=== PATIENT | female | born 1960 | race Caucasian/White ===

== ENCOUNTER → 2017-03-14 | Outpatient (CLI) | payer BC ==
[~2017-03-14] MED LIST: ALPRAZOLAM0.5 M3; AMITRIPTYLINE 550 MG PO; ARNUITY EL200 MCG/Ac IH; ASPIRIN81 MG PO; DICLOFENAC 50MG50 MG PO; DIPHENHYDRAMINE50 MG PO; ELAVIL GENERIC25 MG PO; SERTRALINE 100100 MG; SINGULAIR 10 MG10 MG PO; SYMBICORT1 AE1 IH; TIZANIDINE HCL 44 MG NG; TOPAMAX100 MG PO; ULTRAM50 MG PO; VENTOLIN H0.09 MG/AC IH; XANAX 0.5MG TA0.5 MG PO; ZOLOFT100 MG PO
--- NOTE | 2017-03-14 14:17 | RADIOLOGY REPORT PS360 ---
History and Indications: Obesity, hypertension, tobacco use, shortness of breath and fatigue. Procedure: Patient received a 0.4 mg of Lexiscan, resting heart rate was noted in 106 bpm, resting blood pressure of 184/91, with Lexiscan maximum heart rate achieved was 114 bpm which is less than 85% of the maximum predicted heart rate and a blood pressure was 190/77. With Lexiscan patient complained of mild shortness of breath, and lightheadedness. Electrocardiogram: Resting electrocardiogram showed sinus tachycardia abnormal P wave, with Lexiscan there is less than 1.[address] depression noted from the baseline EKG. The EKG portion of the Lexiscan Myoview is nondiagnostic. Cardiac stress and resting SPECT images: Cardiac stress and resting SPECT images were obtained using technetium 99 Myoview 10.4 mCi at rest and 31.8 mCi at stress, gated SPECT further analysis of segmental wall motion and calculation of the ejection fraction also done. Cardiac stress and rest images show a fixed defect involving the inferior and posterobasal wall with normal contractility on the gated SPECT is likely secondary to soft tissue attenuation, no reversible ischemia seen. Computer derived ejection fraction is 61% with no obvious regional wall motion abnormality, right ventricle is mildly enlarged with normal contractility. Conclusion: 1. The EKG portion of the Lexiscan Myoview is nondiagnostic. 2. No obvious scintigraphic evidence of reversible ischemia seen, computer derived ejection fraction is 61% with no obvious regional wall motion abnormality, right ventricle is mildly enlarged with normal contractility.
== END ==
LOC: RAD 06:55
DX: R06.00 Dyspnea, unspecified (principal); R00.0 Tachycardia, unspecified; I10 Essential (primary) hypertension
CPT/HCPCS: A9502; J2785

== ENCOUNTER → 2017-05-05 | Outpatient (CLI) | payer BC ==
--- NOTE | 2017-05-05 14:14 | RADIOLOGY REPORT PS360 ---
CERVICAL SPINE 4 OR 5 VIEWS COMPARISON: None HISTORY: Generalized neck pain, migraine headaches TECHNIQUE: AP lateral and oblique views and swimmer's view and odontoid view FINDINGS: Seen with through C6 are visualized on lateral projection and appear intact with normal curvature and alignment. C7 is poorly seen even on the swimmer's view but appears grossly normal on oblique views and AP view. Oblique films show no significant neural foraminal narrowing on either side other than minimal narrowing at C5-6 on the left side. IMPRESSION: No significant abnormality noted, only minor neural foraminal narrowing left side C5-C6 secondary to spurring of the uncinate joints.
== END ==
LOC: RAD 10:41
DX: M54.2 Cervicalgia (principal); G43.819 Other migraine, intractable, without status migrainosus

== ENCOUNTER 2017-05-25 10:35 | Emergency (ER) | payer BC ==
[~2017-05-25] VITALS: Ht 162.6 cm; Wt 111.1 kg
--- NOTE | 2017-05-25 10:55 | Emergency Room Report ---
History of Present Illness Time Seen by 1050 Presenting Problem in Triage Pt arrived:Walked Presenting Problem:PT NOTICED A KNOT ON HER RIGHT ELBOW. PT C/O PAIN WHEN SHE USES HER ARM AND TENDER TO TOUCH. CONCERNED WITH BLOOD CLOT. HX OF BLOOD CLOTS IN HER LEGS Onset of symptoms date/time:/ or onset unknown for:MEDICAL HX UNKNOWN Treatment Prior to Arrival: [facility]ER Provided by: Sepsis Risk Assessment: Temp: 98.7 B/P: 137/92 MAP: 107 Pulse: 112 Resp: 16 Recent fever? N Clinical Suspician of Infection? N Mental Status: 1 - Regular (Normal Baseline) Sepsis Risk:Low Sepsis Risk Have you (or family members/close friends) recently traveled outside the [place]? N If Yes, where/when: Have you had exposure to infectious disease within the past month? N TB? Other? Specify: Pt with hx of TIA August 01, 2016; takes Plavix. She reports hx of DVT six years ago. Over the past three days, has noted a little warmth to the right elbow area and is concerned about possible DVT. She has no SOB. No calf pain. No fever. Is not diabetic. No acute neurological sx. ALLERGIES Coded Allergies: Penicillins (Intermediate, WEAKNESS, DIAPHORESIS, INCREASED HR 01/07/16) acetaminophen (From Vicodin) (MAKES SKIN CRAWL 01/07/16) hydrocodone (From Vicodin) (MAKES SKIN CRAWL 01/07/16) Home Medications Reported Medications Fluticasone Furoate (Arnuity Ellipta) 200 MCG IH DAILY ALBUTEROL (Ventolin Hfa) 2 PUFFS IH TID SERTRALINE HYDROCHLORIDE (Zoloft 100MG) 100 MG PO DAILY Aspirin 81 MG PO DAILY Montelukast Sodium (Singulair 10MG) 10 MG PO QHS TIZANIDINE HCL (Tizanidine Hcl 4 Mg Tablet) 4 MG NG TID History Medical History General CAD? No Angina: No MD: No Hypertension? No Hyperlipidemia? No CHF? No DVT? Yes PE? No COPD? Yes Asthma? Yes Anemia? No GERD? No Gastric ulcers? No GI Bleed? No Hernia? No Thyroid Problems? No Hypothyroidism? No CVA? No Seizures? No Diabetes? No Renal Insuffiency? No End Stage Renal Disease? No UTI? Yes Stones? No BPH? No GB Disease: Yes Nephritic Syndrome? No Asplenia? No Hepatitis? No Sickle Cell Disease? No Arthritis? No Migraines? Yes Cataracts? No Glaucoma? No MRSA? No HIV? No TB? No Anxiety? No Depression? No Cancer? No More? No Immunization Hx DT/Tetanus 1-4 YRS Flu 2012-13FSN Pneumonia NEVER Surgical Hx Previous Surgery?Y Tonsils SCAR TISSUE FOR ABD D & C X 2 TUBAL 1992 LASER SURGERY VEINS GALL BLADDER RESPIRATORY CLINICIAN Hx LMP N/A Family History Family Hx Diabetes Yes CAD No Hypertension No Hyperlipidemia No Cancer Yes TB No Social History Smoking Hx Smoker: Current Every Day Smoker Tobacco: Yes Type Cigarettes Packs/day < 1 Pack Alcohol Alcohol: No Review of Systems All Other Systems Reviewed and Negative Cardiovascular denies no symptoms reported Skin see HPI Physical Exam Vital Signs Vital Signs Date Time Temp Pulse Resp B/P Pulse O2 O2 Flow FiO2 Ox Delivery Rate 05/25 1043 98.7 112 16 137/92 98 General Appearance normal appearance, WD/WN, no apparent distress Eye Exam - bilateral eye normal exam, bilateral eye PERRL, bilateral eye EOMI Neck normal inspection, non-tender, supple, full range of motion Respiratory Status Yes: trachea midline, chest symmetrical, non tender chest. No: respiratory distress, tender on palpation, use of accessory muscles, pain on inspiration, pain on expiration, productive cough, non productive cough. Lung Sounds bilateral: normal breath sounds, lungs clear. Cardiovascular normal exam, regular rate/rhythm, no peripheral edema, no gallop, no JVD, no murmur, no rub, normal peripheral pulses Peripheral Pulses Peripheral Pulses 3+ radial (R), 3+ radial (L) Extremities normal range of motion, normal capillary refill, No edema; right elbow very minor redness laterally, no streaks or pus, no FB, no ropiness; no involvement of antecubital area. No hand or distal f/a involvement; FROM throughout. No calf pain; neg Zak's B. Strength 5 Upper Ext (L), 5 Upper Ext (R), 5 Lower Ext (L), 5 Lower Ext (R) Neurologic alert, normal exam, no motor/sensory deficits, oriented x 3 Glascow Coma Scale Glascow Coma Scale Response Value EYE response: 4 Spontaneously 4 MOTOR response: 6 OBEYS 6 VERBAL response: 5 Oriented & Converses 5 Total 15 Skin intact (see above) Medical Decision Making LABS/Meds/Orders Pt receiving controlled substance in ED? No Results/Orders Laboratory Tests 05/25/17 1110: Sodium 139, Potassium 3.9, Chloride 102, Carbon Dioxide 27, BUN 19 H, Creatinine 0.8, Estimated Creat Clear 141, Estimated GFR (MDRD) 75, Glucose 145 H, Calcium 9.3, Total Bilirubin 0.3, AST 17, ALT 32, Alkaline Phosphatase 137 H , Total Protein 7.8, Albumin 3.6, Globulin 4.2 H, Albumin/Globulin Ratio 0.9 L , PT 10.6, INR 0.98, APTT 22.4 L, WBC 13.4 H, RBC 4.22, Hgb 12.9, Hct 38.0, MCV 89.9, RDW 15.6, Plt Count 242, MPV 7.6, Gran % 73.8, Gran # 9.9 H, Lymphocytes % 20.2, Monocytes % 3.3, Eosinophils % 2.4, Basophils % 0.3, Lymphocytes # 2.7, Monocytes # 0.4, Eosinophils # 0.3, Basophils # 0.0, PUBS MCHC 34.1, MCH 30.7 Orders Procedure Date/time Status PARTIAL THROMBOPLASTIN TIME 05/25 1051 Complete PROTHROMBIN TIME 05/25 1051 Complete CBC WITH AUTO DIFF 05/25 1051 Complete CHEM 12 PROFILE 05/25 1051 Complete VENOUS UPPER EXT RT 05/25 1049 Active XRAY/CT/US XRAY/CT/US Ultrasound upper extremity US Interpretation by reviewed by me (d/w tech) US results normal (neg DVT) Departure Departure Time of Disposition 1145 Disposition DC Home or Self Care(routine) Clinical Impression Primary Impression: Cellulitis of right elbow Ruled Out Impressions: DVT (deep venous thrombosis) Condition STABLE Referrals Jocelyn Eddy APRN (PCP/Family) Patient Instructions Cellulitis Additional Instructions Rx Zithromax and Bactrim; see Jocelyn for follow up recheck in one to two days, Tylenol as needed. Discharge Counseling Counseled pt/family regarding diagnosis, test results, medications/RX, home care, follow up needs Prescriptions Current Visit Scripts Azithromycin (Azithromycin 250MG Tab) 250 MG PO DAILY #6 TAB Zpack over five days as directed SULFAMETHOXAZOLE W/TRIMETHOPRI (Bactrim Ds Tab) 1 TABLET PO BID #20 TAB ED Critical Care Critical Care No at 1150
--- OUTSIDE RECORDS SUMMARY | 2017-05-25 11:22 | External Medical Summary Rpt | CCD ---
Author Author , JASSON Organization JASSON Address Unknown Phone [email or web address] Support Name Relationship Address Phone NOVEMBER, Next Of Kin [address], [phone] [place] [address] Purpose Continuity of Care Document - 02-20-2013 through 2016 Allergies, Adverse Reactions, Alerts Type Drug Allergy Propensity to adverse reactions to drug Adverse Reaction to Substance Substance Reaction Severity PCN (penicillin) WEAKNESS Unknown Acetaminophen SKIN CRAWLS Unknown Hydrocodone SKIN CRAWLS Unknown Medications Na ND Rx Da Fi Fi Am Da Di Ph RX Ph St me C No te ll ll ou ys ag ar # ys at rm s nt no ma ic us Or Da si cy ia de te s n re d SO 00 07 0 No DI 40 -2 UM 97 3- Lo 98 20 ng CH 30 13 er LO 3 RI Ac DE ti ve 0. 9% SO MAIA TI ON KE 00 07 0 No TO 40 -2 RO 93 3- Lo LA 79 20 ng C 50 13 er 30 1 Ac MG ti /M ve L AL Vital Signs 02-20-2013 19:03 Name Value Interpretat Reference Comment ion Range Body 97.9 [degF] Temperature BP 77 mm[Hg] Diastolic BP Systolic 130 mm[Hg] Heart 96 /min Rate/Pulse O2% 97 % Respiratory 20 /min Rate Results Labs Lab Lab Date Result Refere Interp Status Commen Order Detail nces retati t Range on COMPREHENSIVE METABOLIC PANEL (02-20-2013 17:35) Glucose 129 74-106 complet 013 mg/dL ed Bld-mCn 17:35 c BUN 12 7-18 complet Bld-mCn 013 mg/dL ed c 17:35 Creat 0.7 0.6-1.0 complet SerPl-m 013 mg/dL ed Cnc 17:35 ESTIMAT 158 50-200 complet ED 013 ML/MIN ed CREATIN 17:35 INE CLEARAN CE GFR 07-23-2 89 59- complet (ESTIMA 013 ML/MIN ed ANTOINETTE) 17:35 Sodium 02-20-2 140 136-145 complet SerPl-s 013 mmoL/L ed Cnc 17:35 Potassi 02-20-2 3.3 3.5-5.1 complet um 013 mmoL/L ed SerPl-s 17:35 Cnc Chlorid 105 98-107 complet e 013 mmoL/L ed SerPl-s 17:35 Cnc CO2 02-20-2 27 21.0-32 complet SerPl-s 013 mmoL/L .0 ed Cnc 17:35 Calcium 02-20-2 8.8 8.5-10. complet 013 mg/dL 1 ed SerPl-m 17:35 Cnc Prot 02-20-2 7.0 6.4-8.2 complet SerPl-m 013 gm/dL ed Cnc 17:35 Albumin 02-20-2 3.3 3.4-5.0 complet 013 gm/dL ed SerPl-m 17:35 Cnc Globuli 02-20-2 3.7 1.3-3.2 complet n 013 gm/dL ed Ser-mCn 17:35 c Albumin 02-20-2 0.9 UNK 1.1-1.8 complet /Glob 013 ed SerPl-m 17:35 Rto Bilirub 02-20-2 0.7 0.2-1.0 complet 013 mg/dL ed SerPl-m 17:35 Cnc AST 02-20-2 21 U/L 15-37 complet SerPl-c 013 ed Cnc 17:35 ALT 02-20-2 46 U/L 30-65 complet SerPl-c 013 ed Cnc 17:35 ALP 02-20-2 159 U/L 50-136 complet SerPl-c 013 ed Cnc 17:35 CBC with AUTO DIFF (02-20-2013 17:35) WBC # 23-2 9.3 4.8-10. complet Bld 013 K/MM3 8 ed Auto 17:35 RBC # 23-2 3.93 4.2-5.4 complet Bld 013 M/mm3 ed Auto 17:35 Hgb 02-20-2 13.5 12.2-16 complet Bld-mCn 013 g/dL .2 ed c 17:35 Hct Fr 02-20-2 39.7 % 37.0-47 complet Bld 013 .0 ed 17:35 MCV RBC 23-2 101.0 82.2-97 complet 013 fl .8 ed 17:35 MCH RBC 23-2 34.3 pg 27-31.2 complet Qn 013 ed Auto 17:35 MEAN 07-23-2 34.0 31.8-35 complet CORPUSC 013 g/dl .4 ed ULAR 17:35 HGB CONC RDW RBC 23-2 15.6 % 11.5-17 complet Auto 013 .5 ed 17:35 Platele -23-2 347 142-424 complet t Bld 013 K/mm3 ed Ql 17:35 Manual MEAN 02-20-2 7.4 fl 7.4-10. complet PLATELE 013 4 ed T 17:35 VOLUME Granulo -23-2 71.5 % 37.0-80 complet cytes 013 .0 ed Fr Bld 17:35 Auto LYMPH % 07-23-2 21.7 % 10-50.0 complet 013 ed 17:35 Monocyt 07-23-2 4.2 % 1.7-9.3 complet es Fr 013 ed Bld 17:35 Auto Eosinop 07-23-2 2.1 % 0.1-12. complet hil Fr 013 0 ed Bld 17:35 Auto Basophi 07-23-2 0.5 % 0.1-2.0 complet ls Fr 013 ed Bld 17:35 Auto Granulo 07-23-2 6.7 1.8-7.8 complet cytes # 013 K/mm3 ed Bld 17:35 Auto Lymphoc 07-23-2 2.0 0.7-4.5 complet ytes Fr 013 K/mm3 ed Bld 17:35 Auto Monocyt 07-23-2 0.4 0.1-1.0 complet es # 013 K/mm3 ed Bld 17:35 Auto Eosinop 07-23-2 0.2 0.0-0.4 complet hil # 013 K/mm3 ed Bld 17:35 Auto Basophi 07-23-2 0.1 0-0.2 complet ls # 013 K/MM3 ed Bld 17:35 Auto URINALYSIS/COMPLETE (02-20-2013 17:35) URINE -23-2 YELLOW YELLOW complet COLOR 013 ed 17:35 URINE 02-20-2 SL CLEAR complet APPEARA 013 CLOUDY ed NCE 17:35 URINE 02-20-2 NEGATIV NEG complet GLUCOSE 013 E ed - 17:35 DIPSTIC K URINE 02-20-2 1+ NEG complet BILIRUB 013 ed IN - 17:35 DIPSTIC K URINE 23-2 NEGATIV NEG complet KETONE 013 E mg/dL ed 17:35 URINE 02-20-2 1.025 1.005-1 complet SPECIFI 013 UNK .030 ed C 17:35 GRAVITY URINE 02-20-2 NEGATIV NEG complet BLOOD 013 E ed 17:35 URINE 02-20-2 6.0 UNK 5.0-8.5 complet PH 013 ed 17:35 URINE 02-20-2 NEGATIV NEG complet PROTEIN 013 E mg/dL ed - 17:35 DIPSTIC K URINE 23-2 0.2 NEG complet UROBILI 013 E.U./dL ed NOGEN - 17:35 DIPSTIC K URINE 02-20-2 NEGATIV NEG complet NITRATE 013 E ed - 17:35 DIPSTIC K URINE 23-2 NEGATIV NEG complet LEUK 013 E ed ESTERAS 17:35 E Encounters Encounter Start End Date Code Location Performer Type Date Emergency MICHAEL WAITE MD (ER) 3 17:43 3 19:04 [facility]
--- OUTSIDE RECORDS SUMMARY | 2017-05-25 11:22 | External Medical Summary Rpt | CCD ---
Author Author [employer] Organization [employer] Address Unknown Phone Unavailable Purpose Continuity of Care Document - through 2016
--- OUTSIDE RECORDS SUMMARY | 2017-05-25 11:22 | External Medical Summary Rpt | CCD ---
Author Author , JASSON Organization JASSON Address Unknown Phone [email or web address] Immunization Name Date Rout CVX Reac Dose Comm Prov Is Faci e tion ent ider Refu lity Give sed n Infl 01-0 Intr 150 0.5 Hist NH No NH uenz 2-20 amus mL oric a 17 cula al Quad r Info Inj rmat ion - Sour ce Unsp ecif ied PPV2 01-0 Intr 33 0.5 Hist NH No NH 3 2-20 amus mL oric 17 cula al r Info rmat ion - Sour ce Unsp ecif ied
--- OUTSIDE RECORDS SUMMARY | 2017-05-25 11:22 | External Medical Summary Rpt | CCD ---
Author Author , JASSON Organization JASSON Address Unknown Phone [email or web address] Immunization Name Date Rout CVX Reac Dose Comm Prov Is Faci e tion ent ider Refu lity Give sed n Infl 01-0 Intr 150 0.5 Hist MT No MT uenz 2-20 amus mL oric a 17 cula al Quad r Info Inj rmat ion - Sour ce Unsp ecif ied PPV2 01-0 Intr 33 0.5 Hist MT No MT 3 2-20 amus mL oric 17 cula al r Info rmat ion - Sour ce Unsp ecif ied
--- OUTSIDE RECORDS SUMMARY | 2017-05-25 11:22 | External Medical Summary Rpt | CCD ---
Author Author , JASSON Organization JASSON Address Unknown Phone [email or web address] Support Name Relationship Address Phone NOVEMBER, Next Of Kin [address], [phone] [place] [address] Purpose Continuity of Care Document - 02-20-2013 [...] WAITE MD (ER) 3 17:43 3 19:04 [facility]
--- OUTSIDE RECORDS SUMMARY | 2017-05-25 11:23 | External Medical Summary Rpt ---
Author Author JASSON Ashton, JASSON Ashton Organization [employer] Address Unknown Phone Unavailable
--- OUTSIDE RECORDS SUMMARY | 2017-05-25 11:23 | External Medical Summary Rpt ---
Author Author JASSON Ashton, JASSON Ashton Organization [employer] Address Unknown Phone Unavailable
[2017-05-25 11:31] LABS: HEMOGLOBIN 12.9 g/dL (12.2-16.2); LYMPH # 2.7 K/mm3 (0.7-4.5); LYMPH % 20.2 % (10-50.0)
[2017-05-25] MEDS ORDERED: AZITHROMYCIN250 M1 PO (11:49)
[2017-05-25] MEDS ORDERED: BACTRIM DS 8001 TA1 PO (11:49)
[2017-05-25 11:54] VITALS: BP 130/74
--- NOTE | 2017-05-26 14:20 | CARDIOVASCULAR REPORT ---
"Venous Exam Indications: 729.5 Pain in limb. IMPRESSIONS 1. There is no evidence of significant reflux. 2. No evidence of deep or superficial vein thrombosis involving the veins of the right upper extremity Right upper extremity venous duplex. Doppler flow study including spectral analysis, color and west scale imaging. Location: Vascular laboratory. Patient status: Emergency department. Tables: Venous flow and imaging: + + + |Location |Flow properties | + + + |Right internal jugular|Normal phasicity; spontaneous; compressible | + + + |Right subclavian |Normal phasicity; spontaneous; normal | | |augmentation; compressible | + + + |Right axillary |Normal phasicity; spontaneous; normal | | |augmentation; compressible | + + + |Right brachial |Normal phasicity; spontaneous; normal | | |augmentation; compressible | + + + |Right cephalic |Normal phasicity; spontaneous; normal | | |augmentation; compressible | + + + |Right basilic |Normal phasicity; spontaneous; normal | | |augmentation; compressible | + + + |Right radial |Compressible | + + + |Right ulnar |Compressible | + + + (Report amended ) Electronically signed by: Gerald Cartagena [id number]"
== END 2017-05-25 11:56 | disposition home or self-care (01) ==
LOC: ER 10:35
PROVIDERS: Emergency Medicine
DX: L03.111 Cellulitis of right axilla (principal); J44.9 Chronic obstructive pulmonary disease, unspecified; F17.210 Nicotine dependence, cigarettes, uncomplicated; Z88.0 Allergy status to penicillin